=== PATIENT | male | born 1985 | race African-American/Black ===

== ENCOUNTER 2020-05-29 13:44 | Emergency (ER) | payer OTHER ==
[2020-05-29 16:16] LABS: BASOPHIL 0.6 % (0-2); EOSINOPHIL 0 % (0-5); HCT 40.1 % (42.0-52.0); HGB 13.7 g/dl (13.2-18.0); LYMPHOCYTE 12.9 % (15-48); MCH 35.6 pg (25.0-31.0); MCHC 34.2 g/dL (32.0-36.0); MCV 104.2 fL (78.0-100.0); MONOCYTE 10.8 % (0-12); MPV 10.8 fL (6.0-9.5); NEUTROPHIL 75.1 % (41-80); NRBC 0; PLT 239 K/uL (150-400); RBC 3.85 M/uL (4.70-6.00); RDW 14.5 % (11.5-14.0); WBC 9.3 K/uL (4.0-10.5)
[2020-05-29 16:33] LABS: ALBUMIN 3.3 g/dL (3.4-5.0); BILIRUBIN - TOTAL 2.6 mg/dL (0.2-1.0); BUN/CREAT RATIO (CALC) 6.6 RATIO; CREATININE 0.76 mg/dL (0.67-1.17); GLOBULIN (CALCULATION) 4.4 g/dL; MAGNESIUM 1.5 mg/dL (1.8-2.4); TOTAL PROTEIN 7.7 g/dL (6.4-8.2)
[2020-05-29 16:40] LABS: POTASSIUM 2.3 mmol/L (3.5-5.1)
== END 2020-05-29 19:09 | disposition home or self-care (01) ==
LOC: FER 13:44
PROVIDERS: Emergency Medicine
DX: R56.9 Unspecified convulsions (principal); E86.0 Dehydration; E87.6 Hypokalemia; E83.42 Hypomagnesemia; S00.512A Abrasion of oral cavity, initial encounter; I10 Essential (primary) hypertension; F17.210 Nicotine dependence, cigarettes, uncomplicated; Z79.899 Other long term (current) drug therapy; X58.XXXA Exposure to other specified factors, initial encounter
CPT/HCPCS: 36415; 70450; 80053; 83735; 85025; 93005; G0480; J3411; J3475; J7030